=== PATIENT | female | born 1990 | race Caucasian/White ===

== ENCOUNTER 2023-01-19 08:38 | Emergency (ER) | payer MEDICAID ==
[~2023-01-19] VITALS: Ht 154.9 cm; Wt 54.4 kg
[2023-01-19 08:40] VITALS: BP 154/98
--- NOTE | 2023-01-19 08:48 | NUR ---
patient ambulated to bed 9 without assitance
[2023-01-19] MEDS ORDERED: ONDANSETRON 4 MG ODT PO ONE (09:00)
[2023-01-19] MEDS ORDERED: KETOROLAC 60 MG/2 ML VIAL IM ONE (09:10)
[2023-01-19] MEDS ORDERED: IBUP-2213 PO (10:03)
[2023-01-19] MEDS ORDERED: ONDA8TAB87 PO (10:03)
[2023-01-19 10:13] VITALS: BP 152/95
--- NOTE | 2023-01-19 10:13 | NUR ---
Patient discharged with v/s stable. Written and verbal after care instructions given and explained. Patient alert, oriented and verbalized understanding of instructions. Ambulatory with steady gait. All questions addressed prior to discharge. ID band removed. Patient advised to follow up with PMD. Rx of ibuprofen and zofran given. Patient educated on indication of medication including possible reaction and side effects. Opportunity to ask questions provided and answered.
== END 2023-01-19 10:13 | disposition home or self-care (01) ==
LOC: MED 08:38
DX: R10.9 Unspecified abdominal pain (principal); R11.2 Nausea with vomiting, unspecified; R19.7 Diarrhea, unspecified; Z90.49 Acquired absence of other specified parts of digestive tract; Z98.890 Other specified postprocedural states
CPT/HCPCS: 96372; 99283; J1885; Q0162